=== PATIENT | female | born 1980 | race Two or more races ===

== ENCOUNTER 2025-03-24 00:47 | Emergency (ER) | payer MEDICAID, SELFPAY ==
[2025-03-24 00:48] VITALS: BMI 31.7
--- NOTE | 2025-03-24 00:53 | XR_ITS ---
Examination: AP chest single view TECHNIQUE: AP upright portable chest single view Date and time: March 24, 2025, 0125 hours INDICATIONS: Fever today. FINDINGS: Normal heart size. The lungs are clear. The osseous structures are intact. IMPRESSION: No active disease.
[2025-03-24 01:00] VITALS: TEMP 39.5
[2025-03-24 01:26] LABS: Lactate (Lactic Acid) 1.7 mMol/L (0.4-2.0)
[2025-03-24 01:28] VITALS: TEMP 39.5
[2025-03-24] MEDS: ACETAMINOPHEN 325 MG TABLET 650 MG PO (01:28)
[2025-03-24] MEDS: IBUPROFEN TAB 400 MG TABLET 800 MG PO (01:28)
[2025-03-24 01:29] LABS: Basophils # (Auto) 0.0 Thou/mm3 (0.0-0.2); Basophils % (Auto) 0 % (0-2.5); Eosinophils # (Auto) 0.0 Thou/mm3 (0.0-0.5); Eosinophils % (Auto) 0 % (0-10); Hematocrit 33.9 % (36.0-46.0); Hemoglobin 11.3 g/dL (12.0-16.0); Immature Granulocytes Auto 0.05 Thou/mm3 (0.00-0.00); Lymphocytes # (Auto) 1.0 Thou/mm3 (1.0-4.8); Lymphocytes % (Auto) 8 % (10-50); Mean Corpuscular HGB Conc 33.3 g/dl (31.0-37.0); Mean Corpuscular Hemoglobin 19.8 pg (25.0-35.0); Mean Corpuscular Volume 60 fL (80-100); Monocytes # (Auto) 1.1 Thou/mm3 (0.0-0.8); Monocytes % (Auto) 10 % (0-12); Neutrophils # (Auto) 9.5 Thou/mm3 (1.8-7.7); Neutrophils % (Auto) 81 % (37-80); Nucleated Red Blood Cell # 0.00 Thou/mm3 (0.00-0.00); Nucleated Red Blood Cell % 0 /100 WBC (0); Platelet Count 217 Thou/mm3 (140-440); RDW Standard Deviation 31.8 fL (36.4-46.3); Red Blood Count 5.70 Miln/mm3 (4.00-5.20); White Blood Count 11.7 Thou/mm3 (3.6-11.0)
[2025-03-24 01:48] LABS: Alanine Aminotransferase 18 U/L (10-49); Albumin, Serum 4.3 gm/dL (3.5-5.0); Albumin/Globulin Ratio 1.6 (1.2-2.2); Alkaline Phosphatase 124 U/L (46-116); Anion Gap 10 (7-16); Aspartate Amino Transferase 11 U/L (0-34); BUN/Creatinine Ratio 16 Ratio (12-20); Bilirubin,Total 3.7 mg/dL (0.3-1.2); Blood Urea Nitrogen 11 mg/dL (9-23); Calcium 9.3 mg/dL (8.3-10.6); Calcium (Corrected) 9.3 mg/dL (8.5-10.1); Carbon Dioxide 24.1 mMol/L (20.0-31.0); Chloride 104 mMol/L (98-107); Creatinine (Component) 0.7 mg/dL (0.6-1.3); Estimated Creatinine Clearance 108.6 mL/min (>60); Globulin 2.7 gm/dL (2.3-3.5); Glucose 192 mg/dL (74-106); Osmolality,Calculated 280 (275-295); Potassium 4.2 mMol/L (3.4-5.1); Sodium 138 mMol/L (136-145); Total Protein 7.0 gm/dL (5.7-8.2); eGFR > 60 See Note
[2025-03-24 01:50] LABS: Collection Type, Urine Voided
[2025-03-24 02:09] LABS: Bacteria,Urine 4+; Bilirubin,Urine Negative (Negative); Blood,Urine 3+ (Negative); Clarity,Urine Turbid (Clear/Hazy); Color,Urine Yellow (Lt Yel-Yel); Glucose, Urine Negative (Negative); Ketones,Urine Negative (Negative); Leukocyte Esterase,Urine Positive (Negative); Nitrite,Urine Positive (Negative); PH,Urine 6.5 (5.0-7.0); Protein,Urine 1+ (Neg - Trace); RBC,Urine 730 /hpf (0-3); Specific Gravity,Urine 1.022 (1.001-1.035); Squamous Epithelial Cell,Urine 1 /hpf (0-5); Urobilinogen,Urine 12 mg/dL (0.0-1.0); WBC,Urine 227 /hpf (0-5)
[2025-03-24 02:17] LABS: Path Review Blood Smear Sent to Pathologist
[2025-03-24 02:47] VITALS: BP 115/71; PULSE 90; RESP 19; TEMP 37.7; O2SAT 98
--- NOTE | 2025-03-24 03:23 | PD.EDFEVER ---
ED Fever RME/HPI General Chief Complaint: Fever Stated Complaint: FEVER Time Seen by Provider: 03/24/25 00:52 Source: patient Arrival date/time: 03/24/25 00:47 This is a case of 44-year-old female who came in in the emergency room due to fever for 2 days associated with cough nasal congestion and lower back pain patient denies any shortness of breath chest pain abdominal pain nausea vomiting or flank pain Limitations: no limitations Related Data Home Medications ?Medication ?Instructions ?Recorded ?Confirmed vitamins-iron fumarate 27 1 tab PO QDAY 12/18/18 01/21/24 mg iron-folic acid 0.8 mg tablet ( Vitamin) Previous Rx's ?Medication ?Instructions ?Recorded acetaminophen 500 mg tablet 1,000 mg (2 x 500 mg) PO Q6H PRN 01/18/24 (Tylenol Extra Strength) fever or pain #30 tabs nifedipine 30 mg tablet,extended 30 mg PO QDAY 30 days #30 tabs 01/18/24 release 24 hr (Procardia XL) labetalol 300 mg tablet 400 mg (1.3333 x 300 mg) PO BID 01/21/24 #60 tabs albuterol sulfate 90 mcg/actuation 1 inh inhalation QID PRN shortness 03/24/25 aerosol inhaler (Ventolin HFA) of breath or wheezing #8.5 grams cefuroxime axetil 500 mg tablet 500 mg PO BID 10 days #20 tabs 03/24/25 ibuprofen 800 mg tablet 800 mg PO Q8H PRN pain #20 tabs 03/24/25 prednisone 20 mg tablet See Taper PO QDAY 5 days #5 tabs 03/24/25 promethazine 6.25 mg/5 mL oral 6.25 mg (5 mL) PO TID PRN cough 03/24/25 syrup #120 mL Allergies Allergy/AdvReac Type Severity Reaction Status Date / Time No Known Allergies Allergy Verified 03/24/25 00:56 Review of Systems Review of Systems Systems Reviewed: All systems reviewed, normal except as documented Constitutional Constitutional: Reports system reviewed and no additional complaints, except as documented and Reports as per HPI Cardiovascular Cardiovascular: Reports system reviewed and no additional complaints, except as documented, Reports as per HPI, Denies chest pain, Denies dyspnea and Denies dyspnea on exertion Respiratory Respiratory: Reports system reviewed and no additional complaints, except as documented, Reports as per HPI, Reports cough, Denies dyspnea, Denies dyspnea on exertion, Denies excessive phlegm production, Denies hemoptysis, Denies pain with cough and Denies wheezing Gastrointestinal Gastrointestinal: Reports system reviewed and no additional complaints, except as documented, Reports as per HPI, Denies abdominal pain, Denies hematemesis, Denies loose stools, Denies nausea and Denies vomiting Genitourinary Genitourinary: Reports system reviewed and no additional complaints, except as documented, Reports as per HPI, Denies dysuria and Denies hematuria Neurologic Neurologic: Reports system reviewed and no additional complaints, except as documented and Reports as per HPI Allergic/Immunologic Allergic/Immunologic: Denies wheezing Past Medical History Past Medical History NEUROLOGIC: Negative Neurological Disorders CARDIAC: Negative Cardiac Disorders or Congestive Heart Failure RESPIRATORY: Negative Chronic Obstructive Pulmonary Disease (COPD) GASTROINTESTINAL: Negative Gastrointestinal Disorders or Hepatitis GENITOURINARY: Negative Genitourinary Disorders or Renal Disease REPRODUCTIVE: Negative Pelvic Inflammatory Disease MUSCULOSKELETAL: Negative Musculoskeletal Disorders ENDOCRINE: Negative Endocrine Disorders, Diabetes Mellitus Type 1 or Diabetes Mellitus Type 2 HEMATOLOGIC: Negative Blood Disorders OTHER HISTORY: Positive Hospitalization (CHILDBIRTH); Negative Autoimmune Disease, Falls, Blood Transfusions, Blood Transfusion Reaction, Anesthesia Reactions, Organ Transplant, Chemotherapy, Radiation Therapy, Hyperbaric Therapy, MRSA, VRSA, Vancomycin-Resistant Enterococci, Human Immunodeficiency Virus (HIV), Chicken Pox, Measles, Mumps, Rubella (G[place]ian Measles), Pertussis, Clostridium Difficile or Cancer Family History FAMILY HISTORY: Positive Family Cancer (MATERNAL GM, UNKNOWN, MOM BREAST CA.); Negative Family Psychiatric Problems, Family Respiratory Disorders, Family Cardiac Disorders, Family Gastrointestinal Problems, Family Surgery or Family Anesthesia Reaction Surgical History SURGICAL: Negative Endocrine Surgery, Neurologic Surgery, Section or Organ Transplant Social History SMOKING STATUS: Never smoker SECOND HAND EXPOSURE: No Physical Exam General Limitations: no limitations General appearance: alert and in no apparent distress Head Head exam: atraumatic, normocephalic and normal inspection Eye Eye exam: Present normal appearance, PERRL and EOMI ENT ENT exam: Present normal exam, normal oropharynx, mucous membranes moist and other (Normal HEENT exam) Neck Neck exam: Present normal inspection, full ROM and trachea midline; Absent tenderness, meningismus, lymphadenopathy or thyromegaly Chest Chest inspection: Present normal inspection and symmetric chest wall rise; Absent tenderness, rash or abscess Respiratory Respiratory exam: Present normal lung sounds bilaterally and wheezes (Mild wheezing both lower lung field); Absent respiratory distress, stridor, accessory muscle use or prolonged expiratory phase Cardiovascular Cardiovascular exam: Present regular rate, normal rhythm and normal heart sounds; Absent bradycardia, tachycardia, irregular rhythm, systolic murmur or diastolic murmur Abdominal Exam Abdominal exam: Present soft, normal bowel sounds and other (No CVA tenderness); Absent distention, tenderness, guarding, rebound, rigidity, diminished bowel sounds, hyperactive bowel sounds, Matta's sign or Rovsing's sign Extremities Exam Extremities exam: Present normal inspection and full ROM Back Exam Back exam: Present normal inspection and full ROM Neurological Exam Neurological exam: Present alert, oriented X3, CN II-XII intact, normal gait and reflexes normal; Absent motor sensory deficit Psychiatric Psychiatric exam: Present normal affect and normal mood Skin Skin exam: Present warm, dry, intact and normal color ED Exam General Limitations: Present no limitations General appearance: Present alert and in no apparent distress Head Head exam: Present atraumatic, normocephalic and normal inspection Eye Eye exam: Present normal appearance, PERRL and EOMI ENT ENT exam: Present normal exam, normal oropharynx, mucous membranes moist and other (Normal HEENT exam) Neck Neck exam: Present normal inspection, full ROM and trachea midline; Absent tenderness, meningismus, lymphadenopathy or thyromegaly Chest Chest inspection: Present normal inspection and symmetric chest wall rise; Absent tenderness, rash or abscess Respiratory Respiratory exam: Present normal lung sounds bilaterally and wheezes (Mild wheezing both lower lung field); Absent respiratory distress, stridor, accessory muscle use or prolonged expiratory phase Cardiovascular Cardiovascular exam: Present regular rate, normal rhythm and normal heart sounds; Absent bradycardia, tachycardia, irregular rhythm, systolic murmur or diastolic murmur Abdominal Exam Abdominal exam: Present soft, normal bowel sounds and other (No CVA tenderness); Absent distention, tenderness, guarding, rebound, rigidity, diminished bowel sounds, hyperactive bowel sounds, Matta's sign or Rovsing's sign Extremities Exam Extremities exam: Present normal inspection and full ROM Back Exam Back exam: Present normal inspection and full ROM Neurological Exam Neurological exam: Present alert, oriented X3, CN II-XII intact, normal gait and reflexes normal; Absent motor sensory deficit Psychiatric Psychiatric exam: Present normal affect and normal mood Skin Skin exam: Present warm, dry, intact and normal color Course Quality Measures none Orders Category Date Time Status Bedside COVID-19 Antigen Test NOW Care 03/24/25 00:53 Active Bedside Influenza A&B Antigen Test NOW Care 03/24/25 00:53 Active XR chest 1V Stat Exams 03/24/25 00:53 Taken Blood Culture (Lab) Stat Lab 03/24/25 01:17 Received CBC Stat Lab 03/24/25 01:12 Completed CMP [Comprehensive Metabolic Panel] Stat Lab 03/24/25 01:12 Completed Lactic Acid [Lactate (Lactic Acid)] Stat Lab 03/24/25 01:17 Completed Path Review Blood Smear Stat Lab 03/24/25 01:12 Completed Strep A Rapid Stat Lab 03/24/25 01:09 Ordered Urinalysis Stat Lab 03/24/25 01:38 Completed Urine Culture Stat Lab 03/24/25 03:13 Ordered Acetaminophen Tab [Tylenol Tab] Med 03/24/25 01:03 Discontinued 650 mg PO X1 ONE CIPROFLOXACIN/D5w 400 MG IVPB [Cipro Ivpb] Med 03/24/25 03:08 Discontinued 400 mg in 200 ml IV Q12HR Ibuprofen Tab [Motrin Tab] Med 03/24/25 01:03 Discontinued 800 mg PO X1 ONE Sodium Chloride 0.9% 1000 ml [Ns] 1,000 ml Med 03/24/25 03:07 Active IV 999 mls/hr cefTRIAXone [Rocephin] 2 gm Med 03/24/25 03:19 Active SODIUM CHLORIDE 0.9% (Popper) [Ns 0.9% (P)] 50 ml IV X1 Vital Signs Vital signs: Vital Signs Temperature 103.1 F H 03/24/25 01:00 Patient initially is febrile at 10 3 repeat vital signs after taking Tylenol Motrin and noted to be 99.5 patient is not tachycardic heart rate is 95 not tachypneic BP stable not hypoxic oxygen saturation is 96% in room air normal Fever MDM Narrative MDM Narrative:: This is a case of 44-year-old female who came in in the emergency room due to fever for 2 days associated with cough nasal congestion and lower back pain patient denies any shortness of breath chest pain abdominal pain nausea vomiting or flank pain physical examination patient is awake alert oriented not in distress nontoxic looking no signs and symptoms of sepsis bacteremia dehydration nor meningitis negative for meningeal signs HEENT exam is normal lungs sound is wheezing both lower lung field no crackles no rales no retraction no stridor abdomen is benign no guarding no rebound no rigidity no tenderness the rest of the physical examination neurological exam is normal and unremarkable blood test showed leukocytosis at 11,500 lactic acid is normal no anemia no electrolyte imbalance kidney function is normal AST ALT is normal alk phos is elevated bilirubin is elevated at 3.7 urine showed a positive blood and WBC in urine suggestive of urinary tract infection COVID and flu is negative chest x-ray is normal patient was given a bolus of normal saline and 2 g of Rocephin for UTI and discharged with cefuroxime patient was also treated as acute bronchitis test discharged with prednisone Ventolin inhaler inhaler and cough medication patient will follow-up with PCP to be referred to outside sales representative insurance for elevated alk phos and hyperbilirubinemia until he repeat the level after 3 months for any worsening symptoms she is well-informed return in the emergency room immediately or call 911 Patient was discharged with comfortable condition walking with stable gait. Patient verbalized no further complains explained diagnosis and answered patient question. Patient is comfortable with the proposed management plan including the need to follow up with his/her primary care physician and any specialist if applicable Discussed patient for any urgent condition or worsening sx, He/She needed to go to emergency room immediately or call 911. Patient acknowledge the responsibility to follow up as instructed and to monitor her/his symptoms. For any persistence of the symptoms for more than 3-5 days return precaution advised. Discussed the result of the test and was given printed discharge instruction Patient data External records reviewed:: [facility] previous records Clinical information provided by:: patient Social determinants that could affect healthcare access:: none Patient has the following chronic illnesses:: None How is presenting disease/condition affected by chronic disease/condition?: no chronic disease Evaluation data The following diagnostics were reviewed and interpreted by me:: lab results and radiology exam(s) Lab and/or radiology exams considered but not ordered:: Reviewed Interpretation Summary: Reviewed Medications / Prescriptions Medications or Prescriptions considered but not ordered:: Given Medication administrations:: Medication Administration History Sodium Chloride (Ns) 1,000 mls @ 999 mls/hr IV .Q1H1M ONE Stop: 03/24/25 04:07 Ceftriaxone Sodium 2 gm/ (Sodium Chloride) 50 mls @ 100 mls/hr IV X1 ONE Stop: 03/24/25 03:48 Discontinued Medications Acetaminophen (Acetaminophen 325 Mg Tablet) 650 mg PO X1 ONE Stop: 03/24/25 01:04 Last Admin: 03/24/25 01:28 Dose: 650 mg Documented By: CATRINA Ciprofloxacin/Dextrose (Cipro Ivpb) 400 mg in 200 mls @ 200 mls/hr IV Q12HR NILA Stop: 03/31/25 03:07 Ibuprofen (Ibuprofen Tab 400 Mg Tablet) 800 mg PO X1 ONE Stop: 03/24/25 01:04 Last Admin: 03/24/25 01:28 Dose: 800 mg Documented By: CATRINA Given Consultations Consultation(s) initiated? (list below): No Diagnosis Fever Differential Diagnosis: fever of unknown origin, pyelonephritis and other (Urinary tract infection) Most likely diagnosis given after review of the tests above:: Urinary tract infection acute bronchitis Admission Indicated Admission indicated?: not indicated Explain why admission is indicated or not indicated:: Not indicated Admission Request Was there a request for admission?: No Admission Attestation Admission request attestation: Not indicated Disposition Plan Disposition Plan: Discharge Discharge Attestation Discharge Attestation: The patient and all family members were given an opportunity to ask questions and understood the discharge instructions. Discharge instructions specifically effects, indications for sooner follow up or return to the emergency department, and the expected course of current diagnosis. Patient condition: Stable Discharge Plan Plan Patient Disposition: HOME (Self Care) Patient condition on transfer: Stable Prescriptions/Referrals Prescriptions/Med Rec: New cefuroxime axetil 500 mg tablet 500 mg PO BID 10 Days Qty: 20 0RF prednisone 20 mg tablet See Taper PO QDAY 5 Days Qty: 5 0RF Taper: Prednisone Taper 20 mg DAILY for 2 Days and 0 Hour 10 mg DAILY for 2 Days and 0 Hour 5 mg DAILY for 7 Days and 0 Hour albuterol sulfate [Ventolin HFA] 90 mcg/actuation HFA aerosol inhaler 1 inh inhalation QID PRN (Reason: shortness of breath or wheezing) Qty: 8.5 0RF promethazine 6.25 mg/5 mL syrup 6.25 mg PO TID PRN (Reason: cough) Qty: 120 0RF Rx Instructions: 3 doses during day; last dose no later than 4 hr before bedtime ibuprofen 800 mg tablet 800 mg PO Q8H PRN (Reason: pain) Qty: 20 0RF No Action Vitamin 27 mg iron- 0.8 mg Tablet 1 tab PO QDAY acetaminophen [Tylenol Extra Strength] 500 mg tablet 1,000 mg PO Q6H PRN (Reason: fever or pain) Qty: 30 0RF nifedipine [Procardia XL] 30 mg tablet extended release 24hr 30 mg PO QDAY 30 Days Qty: 30 2RF labetalol 300 mg Tablet 400 mg PO BID Qty: 60 0RF Referrals: Cassius Akers MD [Primary Care Provider] - In 1 week Problem List Clinical Impression: Fever, Urinary tract infection, Acute bronchitis, Hyperbilirubinemia, Alkaline phosphatase elevation Patient/Caregiver Discharge Instructions Education Materials: Total Bilirubin (Blood), Acute Bronchitis, Urinary Tract Infections in Women, What Is Acute Bronchitis?, ED FUO Adult Additional Instructions: Follow-up with your primary care physician in 2 days for reevaluation and to be referred to a GI specialist for further evaluation and treatment of hyperbilirubinemia and alkaline phosphatase and to repeat the level in 3 months worsening symptoms or any emergent concern call 911 or go to the nearest emergency room take your medication as directed finish the course of antibiotic increase water intake keep hydrated checking temperature every 4-6 hours and take Tylenol or Motrin as needed for fever or pain Print Language: Faroese Stand Alone Forms: Shana Award Info., Patient Portal Info Letter PA/HANDICRAFT OR HOBBY SHOP MANAGER Supervising Physician PA/HANDICRAFT OR HOBBY SHOP MANAGER Supervising Physician: dr maharaj
[2025-03-24] MEDS: SODIUM CHLORIDE 0.9% 1000 ML 1,000 ML 999 ML IV (03:44)
[2025-03-24] MEDS: cefTRIAXone 2 GM in SODIUM CHLORIDE 0.9% (Popper) 50 ML IV (04:07)
== END 2025-03-24 06:04 | disposition home or self-care (01) ==
PROVIDERS: Nurse Practitioner Family; Emergency Provider Emergency Medicine; PCP Family Medicine
DX: J20.9 Acute bronchitis, unspecified (principal); N39.0 Urinary tract infection, site not specified; E80.6 Other disorders of bilirubin metabolism
CPT/HCPCS: 36415; 71045; 80053; 81001; 83605; 85025; 87040; 87086; 87651; 96372; 99283; J0696; J7030; J7050; A9270

== ENCOUNTER 2025-07-19 04:04 | Emergency (ER) | payer SELFPAY ==
[2025-07-19 04:16] VITALS: BP 113/60; PULSE 98; RESP 18; TEMP 37.8; O2SAT 96
--- NOTE | 2025-07-19 04:45 | EKG_ITS ---
[facility] Test Date: 2025-07-19 Pat Name: WENDY ANDRES Department: Room: - Gender: Female Court Deputy: : [id number] Requested By: Jo Chung Order Number: [id number] Reading MD: Jo Chung Measurements Intervals [place] Rate: 89 P: 34 WA: 130 QRS: -32 QRSD: 100 T: 31 QT: 374 QTc: 456 Interpretive Statements SINUS RHYTHM LEFT ATRIAL ENLARGEMENT [-0.15mV P-WAVE IN V1/V2] LEFT AXIS DEVIATION [QRS AXIS < -30] S1-S2-S3 PATTERN, CONSISTENT WITH PULMONARY DISEASE, RVH, OR NORMAL VARIANT INCOMPLETE RIGHT BUNDLE BRANCH BLOCK [90+ ms QRS DURATION, TERMINAL R IN V1/V2, 40+ ms S IN I/aVL/V4/V5/V6] POSSIBLE LEFT VENTRICULAR HYPERTROPHY [VOLTAGE CRITERIA PLUS LAE OR QRS WIDENING] POSSIBLE SEPTAL MYOCARDIAL INFARCTION , OF INDETERMINATE AGE [30 ms Q WAVE IN V1/V2] No previous ECG available for comparison /[id number]/[email or web address]/[id number].pdf
--- NOTE | 2025-07-19 04:45 | XR_ITS ---
EXAMINATION: PA chest single view TECHNIQUE: Upright PA chest single view Date and time: July 19, 2025, 0517 hours, comparison March 24, 2025 INDICATIONS: Shortness of breath fever beginning today. FINDINGS: Suspicious for early right perihilar right basilar pneumonia. Normal heart size. Osseous structures are intact. IMPRESSION: Suspicious for early right perihilar right basilar pneumonia
--- NOTE | 2025-07-19 04:46 | EDRME_ITS ---
Rapid Medical Screening Exam [facility], LAT[facility] Arrival date/time: 07/19/25 04:04 This is a case of 45-year-old female with no medical history came in in the emergency room due to fever headache and dizziness history of present illness started 1 week prior to arrival in the emergency room and the patient had productive cough and nasal congestion patient denies any shortness of breath or chest pain no palpitation Chief Complaint: Fever Vital signs: Vital Signs Temperature 100.0 F 07/19/25 04:16 Pulse Rate 98 07/19/25 04:16 Respiratory Rate 18 07/19/25 04:16 Blood Pressure 113/60 07/19/25 04:16 Pulse Oximetry (%) 96 07/19/25 04:16 Oxygen Delivery Method Room Air 07/19/25 04:16 Exam: Lung sounds clear breath sound and RRR excellent skin turgor neurological exam is normal and unremarkable Clinical Impression: Fever headache dizziness
[2025-07-19 05:43] LABS: Basophils # (Auto) 0.0 Thou/mm3 (0.0-0.2); Basophils % (Auto) 0 % (0-2.5); Eosinophils # (Auto) 0.0 Thou/mm3 (0.0-0.5); Eosinophils % (Auto) 0 % (0-10); Lymphocytes # (Auto) 0.9 Thou/mm3 (1.0-4.8); Mean Corpuscular Volume 62 fL (80-100); Monocytes % (Auto) 5 % (0-12); Nucleated Red Blood Cell # 0.00 Thou/mm3 (0.00-0.00); Nucleated Red Blood Cell % 0 /100 WBC (0)
[2025-07-19 05:45] LABS: Hematocrit 35.8 % (36.0-46.0); Hemoglobin 11.4 g/dL (12.0-16.0); Immature Granulocytes Auto 0.11 Thou/mm3 (0.00-0.00); Lymphocytes % (Auto) 5 % (10-50); Mean Corpuscular HGB Conc 31.8 g/dl (31.0-37.0); Mean Corpuscular Hemoglobin 19.7 pg (25.0-35.0); Monocytes # (Auto) 0.9 Thou/mm3 (0.0-0.8); Neutrophils # (Auto) 14.8 Thou/mm3 (1.8-7.7); Neutrophils % (Auto) 88 % (37-80); Platelet Count 209 Thou/mm3 (140-440); RDW Standard Deviation 34.8 fL (36.4-46.3); Red Blood Count 5.79 Miln/mm3 (4.00-5.20); White Blood Count 16.8 Thou/mm3 (3.6-11.0)
[2025-07-19 06:00] LABS: Influenza A Ag Negative; Influenza B Ag Negative
[2025-07-19 06:03] LABS: Alanine Aminotransferase 16 U/L (10-49); Albumin, Serum 4.6 gm/dL (3.5-5.0); Albumin/Globulin Ratio 2.3 (1.2-2.2); Alkaline Phosphatase 86 U/L (46-116); Anion Gap 10 (7-16); Aspartate Amino Transferase 15 U/L (0-34); BUN/Creatinine Ratio 14 Ratio (12-20); Bilirubin,Total 3.1 mg/dL (0.3-1.2); Blood Urea Nitrogen 11 mg/dL (9-23); Calcium 9.2 mg/dL (8.3-10.6); Calcium (Corrected) 9.2 mg/dL (8.5-10.1); Carbon Dioxide 22.8 mMol/L (20.0-31.0); Chloride 106 mMol/L (98-107); Creatinine (Component) 0.8 mg/dL (0.6-1.3); Estimated Creatinine Clearance 91.5 mL/min (>60); Globulin 2.0 gm/dL (2.3-3.5); Glucose 269 mg/dL (74-106); Osmolality,Calculated 285 (275-295); Potassium 3.5 mMol/L (3.4-5.1); Sodium 139 mMol/L (136-145); Total Protein 6.6 gm/dL (5.7-8.2); Troponin I < 0.002 ng/mL (0.0-0.045); eGFR > 60 See Note
[2025-07-19 06:34] LABS: Collection Type, Urine Clean Catch
[2025-07-19 07:06] LABS: HCG Qualitative,Urine Negative
[2025-07-19 07:13] LABS: Bacteria,Urine 1+; Bilirubin,Urine 1+ (Negative); Blood,Urine 2+ (Negative); Clarity,Urine Hazy (Clear/Hazy); Color,Urine Yellow (Lt Yel-Yel); Glucose, Urine Negative (Negative); Ketones,Urine Negative (Negative); Leukocyte Esterase,Urine Positive (Negative); Nitrite,Urine Negative (Negative); PH,Urine 6.5 (5.0-7.0); Protein,Urine 1+ (Neg - Trace); RBC,Urine 6 /hpf (0-3); Specific Gravity,Urine 1.037 (1.001-1.035); Squamous Epithelial Cell,Urine 18 /hpf (0-5); Urobilinogen,Urine 6.0 mg/dL (0.0-1.0); WBC,Urine 51 /hpf (0-5)
== END 2025-07-19 06:46 | disposition left against medical advice (07) ==
LOC: SERX 07:18
PROVIDERS: Nurse Practitioner Family; Emergency Provider Emergency Medicine
DX: Z53.21 Procedure and treatment not carried out due to patient leaving prior to being seen by health care provider (principal)
CPT/HCPCS: 36415; 71045; 80053; 81001; 81025; 84484; 85025; 87502; 87635; 93005; 99283